=== PATIENT | female | born 1970 | race Caucasian/White ===

== ENCOUNTER 2017-09-18 03:07 | Emergency (ER) | payer OTHER, SELFPAY ==
[2017-09-18 03:08] VITALS: BP 167/72; PULSE 85; RESP 16; TEMP 36.4; O2SAT 100; BMI 25.8
--- NOTE | 2017-09-18 03:29 | CT_ITS ---
STUDY: CT ABDOMEN AND PELVIS WITHOUT CONTRAST REASON FOR EXAM: Female, 47 years old. Abdominal pain RADIATION DOSAGE (If Supplied By Facility): CTDIvol = ( 8.60 ) mGy, DLP = ( 427.72 ) mGycm TECHNIQUE: Transaxial images were obtained from the dome of the diaphragm to the symphysis pubis without oral contrast, and without intravenous contrast. Sagittal and coronal images were reconstructed. Individualized dose optimization techniques were used for this CT. COMPARISON: None. FINDINGS: The visualized lung bases are unremarkable. The visualized portions of the heart are within normal limits. Normal liver. Normal gallbladder and extrahepatic biliary system. Normal spleen. Normal pancreas. Normal bilateral adrenal glands. There is a 3 mm stone in the upper pole of the RIGHT kidney. There is NO hydronephrosis. Normal visualized stomach. Normal small intestine. Normal colon. The appendix is not discretely identified. Normal abdominal aorta. Normal inferior vena cava. Normal retroperitoneum. Normal urinary bladder. Uterus is unremarkable. There are bilateral tubal ligation clips. The ovaries are not seen. There is NO ascites or free air, abscess or adenopathy. Normal abdominal wall. Normal osseous structures. CT/Abdomen/Pelvis without Cont IMPRESSION: There is a 3 mm stone in the upper pole of the RIGHT kidney. There is NO hydronephrosis. Normal visualized stomach. Normal small intestine. Normal colon. The appendix is not discretely identified. Uterus is unremarkable. There are bilateral tubal ligation clips. The ovaries are not seen. There is NO ascites or free air, abscess or adenopathy. Electronically Signed: Richar Parra MD at 4:37 EDT , Service support ,
[2017-09-18] MEDS: Ketorolac 15 MG/ML Vial IV (03:41)
[2017-09-18 03:53] LABS: Bacteria 0 SEEN /hpf (None Seen); Mucous, Urine 0 SEEN /hpf (<or=2+); Red Blood Cells-Urine 0 SEEN /hpf (0-5); White Blood Cells 0 SEEN /hpf (0-5)
[2017-09-18 03:59] LABS: Absolute Lymphocyte Count 1.67 X10^3/ul (0.83-4.51); Absolute Neutrophil Count 2.1 X10^3/uL (2.0-7.7); Basophil# 0.02 X10^3/uL; Basophil% 0.5 % (0-1); Eosinophil# 0.03 X10^3/uL; Eosinophils% 0.7 % (0-5); Hematocrit 40.6 % (37-47); Hemoglobin 13.6 g/dl (12.0-15.0); Lymphocyte # 1.67 X10^3/ul (4.0); Lymphocyte % 39.5 % (19-41); Mean Corp Hgb Conc 33.5 g/gl (32-36); Mean Corpuscular Hgb 30.2 pg (27.0-32.0); Monocyte# 0.36 X10^3/uL; Monocyte% 8.5 % (0-10); Neutrophil # 2.14 X10^3/uL (2.7-7.7); Neutrophil % 50.6 % (47-70); Platelet Count 184 K/mm3 (150-450); RBC Distribution Width SD 38.8 fl (35.1-43.9); Red Blood Count 4.51 M/mm3 (4.2-5.4); White Blood Count 4.2 K/mm3 (4.4-11.0)
[2017-09-18 04:00] LABS: POSITIVE COUNT NO; POSITIVE DIFFERENTIAL NO; POSITIVE MORPHOLOGY NO
[2017-09-18 04:27] LABS: Anion Gap 8 (5-15); BUN 14 mg/dL (7-18); BUN/Creat Ratio 16.5 RATIO (10-20); Calcium,Total 9.3 mg/dL (8.5-10.1); Chloride 106 mmol/L (98-107); Creatinine, Serum 0.85 mg/dL (0.55-1.02); EST Glomerular Filtration Rate 77 mL/min (>60); Est Glom Filt Rate - Afr Amer 93 mL/min (>60); Estimated Creatinine Clearance 77.42 ml/min; Glucose 119 mg/dL (74-106); Potassium 3.7 mmol/L (3.5-5.1); Sodium Level 143 mmol/L (136-145)
[2017-09-18 04:45] LABS: Color, Urine Straw (Yellow); Glucose, Dipstick Normal (Normal); Ketone-Dipstick Negative (Negative); Nitrite-Dipstick Negative (Negative); Protein-Dipstick 15 mg/dl (Negative); Urine Bilirubin Dipstick Negative (Negative); Urine Clarity Clear (Clear); Urine Urobilinogen Normal (Normal); Urine pH 6.5 (5.0 - 8.0)
[2017-09-18 04:46] LABS: Leukocyte Esterase-Dipstick Negative /ul (Negative); Occult Blood-Urine Negative /ul (Negative); Squamous Epithelial Cells - UA 0-5 SEEN /hpf (5-10)
--- NOTE | 2017-09-18 05:03 | ED.VISSUMM ---
- ER Visit Summary Date of Service: 09/18/17 Chief Complaint: Abdominal pain History of Present Illness: The patient is a 47 F presenting for evaluation secondary to abdominal pain. Patient reports that she has had a continuous abdominal pain that started relatively suddenly since Saturday. Patient reports that located in her left upper quadrant and seems to be worse with coughing palpation and movement. She denies any presence of fevers. She denies any nausea vomiting diarrhea dysuria hematuria frequency. Patient states she has never really had any prior similar symptoms. She denies that there is any sort of injury associated with this, no lifting twisting pushing or pulling. Patient has no prior history of diverticulitis or kidney stones. Review of systems otherwise negative. Physical Examination: Vital signs are within normal limits, patient is afebrile. General: Patient is well-nourished well-developed and in no acute distress. Head: Normocephalic, atraumatic Eyes: Pupils equal round and reactive bilaterally, extra occular motion intact bialterally ENT: Moist mucous membranes Neck: Supple, no lymphadenopathy, no JVD, no meningismus CVS: Heart regular rate and rhythm, no murmurs, rubs or gallops, radial pulses 2+ bilaterally Resp: Respirations nondistressed, lung sounds clear bilaterally Abdomen: Soft, tenderness noted in left upper quadrant without guarding or rebound tenderness. No evidence of overlying vesicular rash, nondistended, no palpable masses, normal bowel sounds Back: Nontender Extremities: Nontender, atraumatic, active full range of motion, no peripheral edema Skin: warm, no rashes, no petechia Neuro: Alert and oriented x 4, CN 2-12 intact, no lateralizing neurological defecits Psyc: Normal affect Test Results: CBC, chemistry, urinalysis unremarkable. CT abdomen pelvis does not show any evidence of acute intra-abdominal pathology. Shows some kidney stones on the right side it within the kidney, but no evidence of ureterolithiasis Emergency Department Course and Treatment: Patient presented for evaluation secondary to left upper quadrant pain. This is reproducible on palpation, the patient seemed relatively uncomfortable so workup was obtained. Urine was negative blood work was negative and CT showed no evidence of acute pathology. Patient was given IV Toradol did have some improvement. At this point I believe the patient likely still has clinical evidence of diverticulitis. I will treat patient with a course of Augmentin. Patient will try [id number] analgesics and follow-up with her primary care physician. Disposition: Discharge Impression: 1. Diverticulitis This note was generated with [employer] dictation software. It may contain incorrect words, spelling, and punctuation that were not noted in review of the chart prior to signing ED Disposition - Plan for ED Patient: Disposition: Home or Assisted Living Chief Complaint: Other, Pain/Inj Diagnosis: Diverticulitis Instructions: ED Diverticulitis Prescriptions: Amox/Clavulanate Tablet [Augmentin Tablet] 875 mg PO Q12H #20 tab Referrals: Sudarshan Kimbrough [Primary Care Provider] - 1 Week
[2017-09-18] MEDS: Amox/Clavulanate 875 MG Tablet PO (05:09)
[2017-09-18 05:12] VITALS: BP 129/76; PULSE 78; RESP 18; O2SAT 99
== END 2017-09-18 05:12 | disposition home or self-care (01) ==
PROVIDERS: Emergency Provider Emergency Medicine; Family Provider Internal Medicine Infectious Disease; PCP Internal Medicine Infectious Disease
DX: K57.92 Diverticulitis of intestine, part unspecified, without perforation or abscess without bleeding (principal); N20.0 Calculus of kidney
CPT/HCPCS: 74176; 80048; 81001; 85025; 96374; 99284; A4216

== ENCOUNTER 2019-12-24 17:54 | Emergency (ER) | payer OTHER, SELFPAY ==
[2019-12-24 17:54] VITALS: BP 147/79; PULSE 75; RESP 17; TEMP 36.6; O2SAT 100; BMI 26.9
--- NOTE | 2019-12-24 18:33 | EKG12_ITS ---
Test Reason : NECK/JAW/L ARM PAIN Blood Pressure : / mmHG Vent. Rate : 063 BPM Atrial Rate : 063 BPM P-R Int : 120 ms QRS Dur : 090 ms QT Int : 418 ms P-R-T Axes : 052 068 044 degrees QTc Int : 427 ms Normal sinus rhythm Normal ECG Confirmed by LAKHWINDER MENEZES, ANGELA ([id number]), assistant production editor JUAN MANUEL PRIETO ([id number]) on 01/07/2020 9:37:48 A M Referred By: JEANETTE/PHYLLIS Confirmed By:CHEYENNE KEANE MD
--- NOTE | 2019-12-24 18:34 | CT_ITS ---
STUDY: CT SOFT TISSUE NECK WITH CONTRAST REASON FOR EXAM: Female, 49 years old. LEFT NECK, JAW, AND LEFT ARM PAIN,CHEST PAIN RADIATION DOSAGE (If Supplied By Facility): CTDIvol = ( 13.08 ) mGy, DLP = ( 320.22 ) mGycm TECHNIQUE: The patient was scanned in a multi-detector CT scanner. High resolution transaxial imaging was performed following intravenous administration of IV 75mL Isovue-370. Sagittal and coronal images were reconstructed. Individualized dose optimization techniques were used for this CT. COMPARISON: None. FINDINGS: Normal bilateral parotid glands. Normal bilateral enrollment eligibility representative spaces. Normal bilateral parapharyngeal spaces. Normal bilateral carotid spaces. Normal bilateral sublingual and submandibular glands and spaces. Normal visualized nasopharynx. Normal retropharyngeal space. Normal perivertebral space. Normal visualized bilateral faucial tonsils. The visualized tongue, tongue base and oropharynx are normal. The visualized cervical lymph nodes (levels I-) are within normal size limits, and maintain normal morphology. There is no demonstrated solid or cystic mass lesion. There is no abnormal contrast enhancement. Normal epiglottis, bilateral vallecula and hypopharynx. The pre-epiglottic and paraglottic adipose spaces are normal. Normal visualized bilateral piriform sinuses, aryepiglottic folds, vocal cords, and arytenoid-cricoid articulations. Normal subglottic trachea. Normal bilateral lobes of the thyroid gland. Normal visualized pulmonary apices. Normal visualized paranasal sinuses. Normal visualized cervical spine. CT/Soft Tissue Neck WITH Contrast IMPRESSION: Normal enhanced CT examination of the soft tissues of the neck. Electronically Signed: Joseluis Logan, at 20:33 EDT Tel , Service support ,
[2019-12-24 19:16] LABS: Absolute Lymphocyte Count 1.56 X10^3/uL (0.83-4.51); Absolute Neutrophil Count 2.2 X10^3/uL (2.0-7.7); Basophil# 0.04 X10^3/uL; Eosinophil# 0.02 X10^3/uL; Eosinophils% 0.5 % (0-5); Hematocrit 42.8 % (37-47); Hemoglobin 13.6 g/dL (12.0-15.0); Lymphocyte # 1.56 X10^3/ul (4.0); Lymphocyte % 37.3 % (19-41); Mean Corp Hgb Conc 31.8 g/dL (32-36); Mean Corpuscular Hgb 29.1 pg (27.0-32.0); Mean Corpuscular Volume 91.5 fL (81-99); Mean Platelet Vol. 10.9 fl (6.2-12.0); Monocyte# 0.33 X10^3/uL; Monocyte% 7.9 % (0-10); NRBC Flagged by Analyzer 0 % (0-5); Neutrophil # 2.23 X10^3/uL (2.7-7.7); Neutrophil % 53.3 % (47-70); Platelet Count 221 K/mm3 (150-450); RBC Distribution Width CV 12.2 % (11.6-14.6); RBC Distribution Width SD 40.5 fl (35.1-43.9); Red Blood Count 4.68 M/mm3 (4.2-5.4); White Blood Count 4.2 K/mm3 (4.4-11.0)
[2019-12-24 19:18] VITALS: BP 132/75; PULSE 79; RESP 15; O2SAT 98
--- NOTE | 2019-12-24 19:19 | RAD_ITS ---
STUDY: X-RAY CHEST REASON FOR EXAM: Female, 49 years old. CHEST PRESSURE, LEFT NECK, ARM AND JAW PAIN TECHNIQUE: Frontal view of the chest COMPARISON: None. FINDINGS: There are ill-defined mid to lower lung zone opacities. There is an ill-defined opacity in the upper mediastinum. There is no pneumothorax, pulmonary edema or pleural effusions. Cardiac shadow is normal. Osseous skeleton is intact. RAD/Chest 1 View (Portable) IMPRESSION: Questionable bilateral airspace opacity, possibly early viral pneumonia. Questionable mediastinal opacity, unclear etiology, possibly vascular such as aorta related. Recommend CT of the chest with IV contrast for evaluation of above abnormalities. Electronically Signed: Joseluis Logan, at 20:01 EDT Tel , Service support ,
[2019-12-24 19:42] LABS: Anion Gap 4 (5-15); BUN 13 mg/dL (7-18); BUN/Creat Ratio 13.3 RATIO (10-20); Calcium,Total 9.6 mg/dL (8.5-10.1); Chloride 107 mmol/L (98-107); Creatinine, Serum 0.98 mg/dL (0.55-1.02); EST Glomerular Filtration Rate 64 mL/min (>60); Est Glom Filt Rate - Afr Amer 78 mL/min (>60); Estimated Creatinine Clearance 65.72 ml/min; Glucose 94 mg/dL (74-106); Potassium 5.3 mmol/L (3.5-5.1); Sodium Level 138 mmol/L (136-145)
[2019-12-24 20:03] LABS: Bacteria 0 SEEN /hpf (None Seen); Mucous, Urine 0 SEEN /hpf (<or=2+); Red Blood Cells-Urine 0 SEEN /hpf (0-5)
[2019-12-24 20:05] LABS: Color, Urine Yellow (Yellow); Glucose, Dipstick Normal (Normal); Ketone-Dipstick 15 mg/dl (Negative); Leukocyte Esterase-Dipstick 25 /ul (Negative); Nitrite-Dipstick Negative (Negative); Occult Blood-Urine Negative /ul (Negative); Protein-Dipstick Negative (Negative); Specific Gravity, Urine 1.015 (1.002-1.030); Urine Bilirubin Dipstick Negative (Negative); Urine Clarity Sl. Cloudy (Clear); Urine Urobilinogen Normal (Normal)
--- NOTE | 2019-12-24 20:11 | CT_ITS ---
STUDY: CTA CHEST REASON FOR EXAM: Female, 49 years old. Chest pain abnormal x-ray RADIATION DOSAGE (If Supplied By Facility): CTDIvol = ( 11.27 ) mGy, DLP = ( 428.94 ) mGycm TECHNIQUE: The examination was performed with the intravenous administration of IV 75mL Isovue-370. Post-processing of the angiographic images was performed, with multiplanar reformation and 3D reconstruction. Individualized dose optimization techniques were used for this CT. COMPARISON: None. FINDINGS: There is no acute or chronic pulmonary embolism. Aorta is of normal caliber. Lungs are clear. There is no pneumothorax, pulmonary edema or pleural effusions. Mediastinal contents are normal. Osseous structures are intact. Abdominal structures are unremarkable. 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 This does not require any clinical attention. CT/CTA Chest W/WO Contrast IMPRESSION: 1. No pulmonary embolism 2. Normal lungs. Electronically Signed: Joseluis Logan, at 20:37 EDT Tel , Service support ,
[2019-12-24 20:20] LABS: Internal QC Validated? YES +Cl - CLEAR BKGD; Squamous Epithelial Cells - UA 0-5 SEEN /hpf (5-10); White Blood Cells 0-5 SEEN /hpf (0-5)
[2019-12-24 20:24] LABS: Pregnancy, Urine Negative Negative
[2019-12-24] MEDS: Ketorolac 15 MG/ML Vial IV (21:27)
[2019-12-24] MEDS: 0.9% Normal Saline 1,000 ML 999 ML IV (21:28)
[2019-12-24 21:29] VITALS: BP 138/67; PULSE 60; RESP 16; O2SAT 100
--- NOTE | 2019-12-24 22:10 | ED.DCSUM_ITS ---
History of Present Illness Chief Complaint: Upper Extremity Injury Informant: Patient Onset: Days Context: Gradual Onset Timing: Continuous Narrative: Patient is a 49-year-old female presenting with pressure in her jaw/upper neck. She states it feels like her blood pressure is chandler high. She checked her blood pressure at home it was 138/93. She does not have a history of high blood pressure. Patient states she has been having symptoms for the past 5 days. She also sometimes feels her left arm feels heavy. She has headache that is throbbing in nature. She is taken Tylenol with mild improvement of her symptom s. She denies any chest pain. She denies any associate nasal congestion, ear pain or sore throat. She denies any vision changes. Patient denies any trauma or head injuries. No GI or symptoms. She called her primary care doctor down in [place] however he was unable to see her for the next month so she came to the ER to be evaluated today. Past Medical History - Allergies and Home Meds Allergies/Adverse Reactions: Allergies sulfamethoxazole [From Bactrim] Allergy (Verified 12/24/19 17:59) Hives trimethoprim [From Bactrim] Allergy (Verified 12/24/19 17:59) Hives codeine Adverse Reaction (Verified 12/24/19 17:59) Vomiting Sulfa (Sulfonamide Antibiotics) Adverse Reaction (Verified 12/24/19 17:59) Vomiting Primary Care Physician: Sudarshan Kimbrough MD [Primary Care Provider] - Past Medical History: None Surgical History: noncontributory, - - Smoking Status: Never smoker Review of Systems General: Reports: Malaise. Denies: Chills, Fever, Sweats Eyes: Denies: Visual changes - bilaterally, Diplopia ENT: Denies: Rhinorrhea, Sore throat Cardiovascular: Denies: Chest pain, Palpitations Respiratory: Denies: Dyspnea, Cough, Dyspnea on exertion Gastrointestinal: Denies: Abdominal pain, Nausea, Vomiting, Diarrhea, Melena, Hematochezia Genitourinary: Denies: Dysuria, Hematuria, Frequency Musculoskeletal: Reports: Neck pain. Denies: Back pain, Extremity Pain Skin: Denies: Rash, Wounds Neurological: Denies: Headache, Weakness, Numbness Physical Exam Vital Signs/Narrative: Vital Signs Pulse Resp BP Pulse Ox 10/15/20 21:29 60 16 138/67 H 100 12/24/19 19:18 79 15 132/75 H 98 Inital Vital Signs reviewed: Yes General: Well nourished, Well developed, No Acute Distress Head: Normocephalic, Atraumatic Eyes: Perrl, EOMI, - - No nystagmus ENT: Moist mucous membranes, No rhinorrhea, TM's clear, - - Normal oropharynx. Sublingual mucosa soft. Neck: Supple, Nontender, No lymphadenopathy, No JVD, - - Bilateral anterior superior chain lymph nodes mildly palpable, nontender to palpation. No overlying erythema. Cardiovascular: Regular rate, Regular rhythm, No murmurs Respiratory: No distress, CTA bilaterally, Chest nontender Abdomen: Soft, Nontender, Nondistended, Normal bowel sounds Back: Nontender, Normal Inspection. Negative for: CVA tenderness Extremities: Nontender, No edema Skin: Normal color, No rash Neurological: Alert, Oriented x3, Cranial nerves II-XII grossly intact, Normal Strength, Normal Sensation Psychological: Normal affect, Normal Mood Diagnostic/Tx/Re-eval - Rhythm Strip Rhythm Strip: Sinus Rhythm Rate: 63 Ectopy: None - EKG Initial EKG Interpretation: Sinus Rhythm, - - Rate of 63 Normal axis Normal intervals Normal ST segments - Medical Decision Making She is evaluated for pressure in her jaw/neck as well as concern for elevated blood pressure. Blood pressure is not significantly elevated and her physical exam is largely unremarkable. She does have some mildly palpable lymph nodes but is not tender and these could be chronic. She is not have any associated bruit. She does have some left arm heaviness which is concerning for referred cardiac pain however patient has minimal risk factors. EKG obtained which does not show any acute cardiac process. Work-up is largely negative with her blood work.She does have a very mild leukopenia of 4.2. She is 25 leukoesterase in her urine and 0-5 white blood cells. There is no bacteria. I do not think this is consistent with infection. Chest x-ray obtained is concerning for ill- defined mid to lower lung zone opacities as well as ill-defined opacity of the upper mediastinum and recommends follow-up with a CT there could be aortic involvement. CT of the neck is obtained looking for deep space infection or any other acute abnormality to explain her symptoms. This is largely normal. A CT of the chest is added on as well is grossly normal. 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 Patient is counseled that the exact cause of her symptoms is not clear. She is given Toradol and IV fluids in the ER. She is instructed to follow-up with her primary care doctor for further evaluation. Patient is a normal neurologic exam. She is were she is well-appearing and agreeable with this plan of care. She is counseled on return precautions. ED Disposition - Plan for ED Patient: Disposition: Home or Assisted Living Diagnosis: Neck pain, Headache Instructions: ED Acute Pain [facility] Referrals: Sudarshan Kimbrough MD [Primary Care Provider] - Additional Instructions: Please alternate Tylenol and ibuprofen as needed for pain. The exact cause your symptoms is not clear but I think you are safe for outpatient follow-up.
[2019-12-24 22:34] VITALS: BP 128/79; PULSE 68; RESP 14; O2SAT 98
== END 2019-12-24 22:36 | disposition home or self-care (01) ==
PROVIDERS: Emergency Provider Emergency Medicine; PCP Internal Medicine Infectious Disease
DX: M54.2 Cervicalgia (principal); R51.9 Headache, unspecified; R59.9 Enlarged lymph nodes, unspecified; D72.819 Decreased white blood cell count, unspecified
CPT/HCPCS: 70491; 71045; 71275; 80048; 81001; 81025; 84484; 85025; 93005; 96361; 96374; 99281; 99284; J7030; Q9967; A4216

== ENCOUNTER 2021-06-11 09:52 | Emergency (ER) | payer OTHER, SELFPAY ==
[2021-06-11 09:53] VITALS: BP 154/73; PULSE 76; RESP 16; TEMP 36.7; O2SAT 97; BMI 29.0
--- NOTE | 2021-06-11 10:07 | CT_ITS ---
STUDY: CT ABDOMEN AND PELVIS WITHOUT CONTRAST REASON FOR EXAM: Female, 51 years old. Right flank pain. RADIATION DOSAGE (If Supplied By Facility): CTDIvol = ( 7.99 ) mGy, DLP = ( 393.08 ) mGycm TECHNIQUE: Transaxial images were obtained from the dome of the diaphragm to the symphysis pubis without oral contrast, and without intravenous contrast. Sagittal and coronal images were reconstructed. Individualized dose optimization techniques were used for this CT. COMPARISON: 09/18/2017. FINDINGS: The visualized lung bases are unremarkable. The visualized portions of the heart are within normal limits. Normal liver. Normal gallbladder and extrahepatic biliary system. Normal spleen. Normal pancreas. Normal bilateral adrenal glands. Normal right kidney. 2 mm nonobstructing stone in the lower pole of the left kidney. No evidence of hydronephrosis. No evidence of ureteral stone. Normal visualized stomach. Normal small intestine. Normal colon. The appendix is visualized and appears normal. There is mild atherosclerotic calcification of the abdominal aorta, without a demonstrated aneurysm. Normal inferior vena cava. Normal retroperitoneum. Normal urinary bladder. Bilateral tubal ligation clips are again seen. Very small umbilical hernia containing fat. No demonstrated acute osseous changes. CT/Abdomen/Pelvis without Cont IMPRESSION: 1. Small nonobstructing stone in the left kidney without evidence of hydronephrosis. 2. No focal acute inflammatory process. Electronically Signed: Humberto Stone MD at 11:10 EDT ,
--- NOTE | 2021-06-11 10:08 | EDS_ITS ---
HPI History of Present Illness Chief Complaint: Flank Pain Detail of Chief Complaint: Right leg pain and worse since yesterday Informant: patient Narrative Narrative: Patient presents to the emergency department with complaint of right flank pain. Patient states that she thought she hurt her back last week and has been having some mild discomfort. Since yesterday she has had more severe pain that radiates to the right lower abdomen. She complains of urinary frequency. She denies fever or nausea or vomiting. She denies dysuria or foul odor to urine. Patient rates the pain a 7 out of 10 currently. She has tried Tylenol arthritis [id number] for the pain and really has not helped much. Patient does have history of kidney stones however she feels like this pains different and not as severe. Prior similar symptoms: Yes [facility] Medical History (Updated 06/11/21 @ 11:[address] Derick Bautista, DO) History of kidney stones Home Medications cyclobenzaprine 10 mg PO TID PRN #20 tablet 06/11/21 [Rx Last Taken Unknown] hydrocodone-acetaminophen 1 tab PO Q4H PRN PRN 3 Days #14 tablet 06/11/21 [Rx Last Taken Unknown] naproxen 500 mg PO BID #14 tab 06/11/21 [Rx Last Taken Unknown] Allergy/AdvReac Type Severity Reaction Status Date / Time sulfamethoxazole Allergy Hives Verified 06/11/21 09:53 [From Bactrim] trimethoprim [From Bactrim] Allergy Hives Verified 06/11/21 09:53 codeine AdvReac Vomiting Verified 06/11/21 09:53 Sulfa (Sulfonamide AdvReac Vomiting Verified 06/11/21 09:53 Antibiotics) Social History Smoking Status: Never smoker ROS ROS ED Constitutional Constitutional ED: Reports systems reviewed and no addt'l complaints, except as documented; Denies body ache(s), change in weight or chills Eyes Eyes: Denies acute decrease in peripheral vision, change in vision, double vision or loss of vision ENT ENT ED: Reports none; Denies ear pain, lip swelling, loss taste/smell, neck pain, otalgia or sore throat Cardiovascular Cardiovascular: Reports none; Denies abdominal pain, chest pain with activity, leg edema, lightheadedness, palpitations, rapid heart rate or syncope Respiratory/Chest Respiratory/Chest: Reports none; Denies change in mental status, dry cough, dyspnea, hemoptysis, shortness of breath at rest or shortness of breath with exertion Gastrointestinal Gastrointestinal: Reports none and abdominal pain; Denies change in stool character, diarrhea, hematemesis, hematochezia, melena, rectal bleeding or vomiting Genitourinary Genitourinary ED: Reports none and urinary frequency; Denies abdominal discomfort, anuria, dysuria, genital pain or polyuria Musculoskeletal Musculoskeletal: Reports none and back pain; Denies arthralgias, difficulty walking, extremity pain, muscle weakness or myalgias Integumentary Reports none; Denies abscess or rash Neurologic Neurologic: Reports none; Denies abnormal gait, confusion, focal weakness, frequent falls, headache(s), loss of vision, numbness, paresthesias, radicular pain, vertigo or weakness Psychiatric Psychiatric: Reports systems reviewed and no addt'l complaints, except as documented and none; Denies behavioral changes, confusion, difficulty concentrating, hallucinations, suicidal ideation, tactile hallucinations or visual hallucinations Endocrine Endocrinology: Denies none, cold intolerance, excessive sweating, fatigue or heat intolerance Hematologic/Lymphatic Hematologic/Lymphatic: Reports none; Denies anemia, easy bleeding or easy bruising Allergic/Immunologic Allergic/Immunologic ED: Denies as per HPI, none, lip swelling, mouth swelling, throat swelling, tongue swelling or hives EXAM Physical Exam Const Vital Signs: 06/11/21 09:53 06/11/21 10:33 Temperature 98.0 F Temperature Source Temporal Pulse Rate 76 Respiratory Rate 16 Respiratory Pattern Normal Blood Pressure 154/73 H Blood Pressure Mean 100 Pulse Ox 97 Positive well nourished and well developed General Appearance ED: well developed and NAD HEENT Reports TM's clear and moist mucous membranes normocephalic and atraumatic; Negative for trauma or tenderness Tympanic Membrane ED: Yes TM's clear Eyes PERRL and EOMs intact bilaterally General Eye ED: Negative for pale conjunctiva or scleral icterus Neck no lymphadenopathy, supple and no JVD General: Negative for tenderness Chest Wall inspection of chest normal and palpation of chest normal Chest: Negative for tenderness Resp normal respiratory effort and clear to auscultation bilaterally Effort and Inspection: Negative for respiratory distress or pain with movement Auscultation: Negative for rhonchi, wheezes or diminished lung sounds Cardio regular rate, regular rhythm, S1 normal heart sound, S2 normal heart sound and no murmurs Peripheral Pulses: pulses 2+ throughout GI soft to palpation, non-distended and no masses GI Narrative: Patient with tenderness palpation of the right lower quadrant with some guarding. There is no rebound, rigidity, or peritoneal signs. Back/Spine no thoracic nor lumbar tenderness Back/Spine Narrative: Patient with CVA tenderness on the right. Extremity normal to inspection General Extremety ED: Negative for edema General Extremity: Negative for edema Neuro oriented x3, CN's II-XII intact bilaterally, no sensory deficits noted and gait normal Sensorium / Orientation: awake, alert, oriented to person, oriented to place and oriented to time Motor Exam: strength 5/5 throughout and strength abnormal Psych mental status grossly normal Skin no rashes or lesions noted and no wounds MDM MDM MDM Narrative Medical decision making narrative: IV line established on arrival. Patient was given Toradol 30 mg IV. Lab work-up was unremarkable. Urinalysis was normal. CT flank showed nothing acute. At this point I suspect likely musculoskeletal back pain. 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 Lab Data Attestation: I reviewed the patient's lab results. Labs: Laboratory Results - last 24 hr 06/11/21 06/11/21 06/11/21 10:24 10:24 10:34 WBC 3.2 L RBC 4.65 Hgb 13.8 Hct 41.4 MCV 89.0 MCH 29.7 MCHC 33.3 RDW Std Deviation 40.0 RDW Coeff of Shabbir 12.3 Plt Count 194 MPV 10.6 Immature Gran % (Auto) 0.000 Neut % (Auto) 48.8 Lymph % (Auto) 42.6 H Crisp % (Auto) 7.1 Eos % (Auto) 0.9 Baso % (Auto) 0.6 Absolute Neuts (auto) 1.6 L Absolute Lymphs (auto) 1.38 Nucleated RBC % 0 Sodium 141 Potassium 3.6 Chloride 108 H Carbon Dioxide 27.0 Anion Gap 6 BUN 13 Creatinine 0.94 Estim Creat Clear Calc 67.03 Est GFR (MDRD) Af Amer 81 Est GFR (MDRD) Non-Af 67 BUN/Creatinine Ratio 13.8 Glucose 105 Calcium 9.8 Urine Color Yellow Urine Clarity Clear Urine pH 6.5 Ur Specific [place] 1.010 Urine Protein Negative Urine Glucose (UA) Normal Urine Ketones Negative Urine Occult Blood Negative Urine Nitrite Negative Urine Bilirubin Negative Urine Urobilinogen Normal Ur Leukocyte Esterase Negative Urine RBC 0 SEEN Urine WBC 0 SEEN Ur Squamous Epith Cells 0 SEEN Urine Bacteria 0 SEEN Urine Mucus 0 SEEN Radiography Diagnostic Testing: Clinical Impression(s) from Imaging Studies Abdomen/Pelvis CT 06/11/21 10:07 IMPRESSION: 1. Small nonobstructing stone in the left kidney without evidence of hydronephrosis. 2. No focal acute inflammatory process. Electronically Signed: Humberto Stone MD at 11:10 EDT , Discharge Plan Triage Chief Complaint: Flank Pain ED Provider: Derick Bautista Dx/Rx/DC Orders Clinical Impression: Back pain Instructions: ED Back Pain (Acute or Chronic) Prescriptions: New cyclobenzaprine [cyclobenzaprine] 10 MG tablet 10 mg PO TID PRN (Reason: Muscle Spasm) Qty: 20 RF: 0 hydrocodone-acetaminophen [hydrocodone-acetaminophen] 1 TABLET tablet 1 tab PO Q4H PRN PRN (Reason: Pain) 3 Days Qty: 14 RF: 0 naproxen 500 MG tablet 500 mg PO BID Qty: 14 RF: 0 Primary Care Provider: Sudarshan Kimbrough Referrals: Sudarshan Kimbrough MD [Primary Care Provider] - 5-7 Days Disposition Disposition: Home, Self Care
[2021-06-11] MEDS: Ketorolac 30 MG/ML Syringe IV (10:21)
[2021-06-11] MEDS: 0.9% Normal Saline 1,000 ML 150 ML IV (10:22)
[2021-06-11 10:34] LABS: Absolute Lymphocyte Count 1.38 X10^3/uL (0.83-4.51); Absolute Neutrophil Count 1.6 X10^3/uL (2.0-7.7); Basophil# 0.02 X10^3/uL; Basophil% 0.6 % (0-1); Eosinophil# 0.03 X10^3/uL; Eosinophils% 0.9 % (0-5); Hematocrit 41.4 % (37-47); Hemoglobin 13.8 g/dL (12.0-15.0); Lymphocyte # 1.38 X10^3/ul (0.83-4.51); Lymphocyte % 42.6 % (19-41); Mean Corp Hgb Conc 33.3 g/dL (32-36); Mean Corpuscular Hgb 29.7 pg (27.0-32.0); Mean Platelet Vol. 10.6 fl (6.2-12.0); Monocyte# 0.23 X10^3/uL; Monocyte% 7.1 % (0-10); NRBC Flagged by Analyzer 0 % (0-5); Neutrophil # 1.58 X10^3/uL (2.7-7.7); Neutrophil % 48.8 % (47-70); Platelet Count 194 K/mm3 (150-450); RBC Distribution Width CV 12.3 % (11.6-14.6); Red Blood Count 4.65 M/mm3 (4.2-5.4); White Blood Count 3.2 K/mm3 (4.4-11.0)
[2021-06-11 10:38] LABS: Bacteria 0 SEEN /hpf (None Seen); Mucous, Urine 0 SEEN /hpf (<or=2+); Red Blood Cells-Urine 0 SEEN /hpf (0-5); Squamous Epithelial Cells - UA 0 SEEN /hpf (5-10); White Blood Cells 0 SEEN /hpf (0-5)
[2021-06-11 10:40] LABS: Color, Urine Yellow (Yellow); Glucose, Dipstick Normal (Normal); Ketone-Dipstick Negative (Negative); Leukocyte Esterase-Dipstick Negative /ul (Negative); Nitrite-Dipstick Negative (Negative); Occult Blood-Urine Negative /ul (Negative); Protein-Dipstick Negative (Negative); Urine Bilirubin Dipstick Negative (Negative); Urine Clarity Clear (Clear); Urine Urobilinogen Normal (Normal); Urine pH 6.5 (5.0 - 8.0)
[2021-06-11 10:46] LABS: Anion Gap 6 (5-15); BUN 13 mg/dL (7-18); BUN/Creat Ratio 13.8 RATIO (10-20); Calcium,Total 9.8 mg/dL (8.5-10.1); Chloride 108 mmol/L (98-107); Creatinine, Serum 0.94 mg/dL (0.55-1.02); EST Glomerular Filtration Rate 67 mL/min (>60); Est Glom Filt Rate - Afr Amer 81 mL/min (>60); Estimated Creatinine Clearance 67.03 ml/min; Glucose 105 mg/dL (74-106); Potassium 3.6 mmol/L (3.5-5.1); Sodium Level 141 mmol/L (136-145)
== END 2021-06-11 11:24 | disposition home or self-care (01) ==
PROVIDERS: Emergency Provider Emergency Medicine; PCP Internal Medicine Infectious Disease; Visit Provider Emergency Medicine
DX: M54.9 Dorsalgia, unspecified (principal); R10.31 Right lower quadrant pain; M79.604 Pain in right leg; R35.0 Frequency of micturition; Z87.442 Personal history of urinary calculi
CPT/HCPCS: 74176; 80048; 81001; 85025; 96361; 96374; 99283; J7030